=== PATIENT | female | born 1955 ===

== ENCOUNTER 2023-01-22 18:39 | Emergency (ER) | payer MEDICARE, SELFPAY ==
--- NOTE | 2023-01-22 18:47 | XRR_ITS ---
PROCEDURE INFORMATION: Exam: XR Chest Exam date and time: 01/22/2023 7:01 PM Age: 67 years old Clinical indication: Other: N/v; Additional info: SOB TECHNIQUE: Imaging protocol: Radiologic exam of the chest. Views: 1 view. COMPARISON: No relevant prior studies available. FINDINGS: Lungs: Unremarkable. No consolidation. Pleural spaces: Unremarkable. No pleural effusion. No pneumothorax. Heart/Mediastinum: Unremarkable. No cardiomegaly. Bones/joints: Unremarkable. XR/XR chest 1V portable [id number] IMPRESSION: No focal consolidation.
[2023-01-22 18:50] VITALS: BP 161/92; PULSE 63; RESP 18; TEMP 36.5; O2SAT 100
--- NOTE | 2023-01-22 18:51 | ECG_ITS ---
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 Measurements Intervals [place] Rate: 60 P: -14 GA: 128 QRS: 65 QRSD: 90 T: 170 QT: 424 QTc: 427 Interpretive Statements SINUS RHYTHM MODERATE T-WAVE ABNORMALITY, CONSIDER LATERAL ISCHEMIA [-0.1+ mV T-WAVE IN I/aVL/V5/V6] MODERATE T-WAVE ABNORMALITY, CONSIDER INFERIOR ISCHEMIA [-0.1+ mV T-WAVE IN II/aVF] No previous ECG available for comparison Electronically Signed On 01-23-2023 8:16:14 NAVAL SCIENCE TEACHER by Kentrell Cheng M.D. [id number] f
--- NOTE | 2023-01-22 18:57 | ED_ITS ---
HPI - Chest Pain 2 General: Chief Complaint: Chest Pain Stated Complaint: n/v,CP,SOB Time Seen by Provider: 01/22/23 18:48 History of Present Illness: 67-year-old female presents emergency de partment initially complaining that she has lower chest pain. She also states she has lower abdominal pain bilaterally. She reports that she has been using ice chips as a dietary supplement for the previous 1 month and has also had a lap band approximately 5 years ago that she did not complete her follow-up exams 4. She states that her lower abdominal pain is a dull aching 2 out of 10 pain. She states that she did have a single episode of nausea earlier today and has had over the previous 1 week episodes of nausea and vomiting. She now states that her chest pain has resolved and she feels much better. She states her main concern is her lower abdominal pain at present. Associated symptoms: Reports abdominal pain and nausea Review of Systems 2 General: Reports: 10 or more systems reviewed and unremarkable except in HPI and below Card: Reports: chest pain GI: Reports: abdominal pain and nausea Physical Exam 2 Narrative: EXAM NARRATIVE: Constitutional: the patient appears well nourished and with normal development. Vital signs reviewed as documented. HENMT: Normocephalic, atraumatic. Extermal ears with normal appearance without drainage. Nose without drainage, normal appearance. Mucus membranes moist. Neck is supple, No jugular venous distension, trachea is midline, no appreciable carotid bruits. No lymphadenopathy. No meningeal signs. Flexion, extension and lateral rotation is without pain. Eyes: Pupils are equal, round, reactive to light and accommodation. No scleral icterus. Extra-ocular movement are intact. Thorax is symmetrical and with equal rise and fall with respirations. Resp: Lungs are clear to auscultation. No wheezes, rales, crackles or ronchi at present. Cardio: Regular rate and rhythm. Positive S1, S2. No appreciable murmurs, rubs or gallops. GI: Abdominal exam reveals normal bowel sounds to all quadrants. No organomegaly. No obvious palpable masses noted. No hepatomegally appreciated. Soft, nontender to palpation. Extremity: Extremities are non-edematous and both femoral and pedal pulses are 2+ and equal bilaterally. Moves all extremities well, sensation in all extremities. Neuro: Alert and oriented x4, person, place, time and situation. Cranial nerves II through XII are grossly intact, there is no focal neurological deficits that I can appreciate at present. Motor strength in the upper and lower extremities are equal and bilateral 5/5. Psych: Cooperative, calm, normal thought process, appropriate judgment. Skin: No lesions, rashes. No gross abnormalities noted. Back: Symmetrical, no obvious deformity, No CVA tenderness Course 2 Vital Signs: Vital signs: Vital Signs Temperature 97.7 F 01/22/23 18:50 Pulse Rate 50 L 01/22/23 22:37 Respiratory Rate 18 01/22/23 22:37 Blood Pressure 128/65 01/22/23 22:37 Pulse Oximetry 97 01/22/23 22:37 Oxygen Delivery Me thod Room Air 01/22/23 21:13 MDM - Chest Pain Medical Decision Making Physical exam completed and documented, I will obtain serial cardiac enzymes, serial twelve-lead EKGs, chest x-ray, CBC, CMP, urinalysis, B-type natriuretic peptide, PT/PTT/INR, and a chest x-ray. I provide cardiac dose aspirin if indicated and nitroglycerin administration if indicated. Pending the review of the twelve-lead EKG I will also consider providing loading dose of heparin and possible heparin drip as well as evaluate the need for nitroglycerin drip, and reevaluate accordingly. Medical Records I reviewed the patient's medical records. Lab Data I reviewed the patient's lab results. 01/22/23 19:11 01/22/23 19:11 Radiology Impressions Chest X-Ray 01/22/23 18:47 IMPRESSION: No focal consolidation. Abdomen/Pelvis CT 01/22/23 20:08 IMPRESSION: 1. The renal cortices have a heterogeneous attenuation which is nonspecific but can be seen the setting of pyelonephritis. Correlate with UA. 2. Mild compression fracture of the L2 vertebral body, age indeterminate. 3. No bowel obstruction or inflammatory process associated with the bowel. 4. No free air or significant free fluid in the abdomen or pelvis. 5. The appendix images normally. Laboratory Results WBC 6.04 10^3/uL (3.29-11.43) 01/22/23 19:11 RBC 4.93 10^6/uL (3.85-5.65) 01/22/23 19:11 Hgb 13.60 g/dL (11.27-16.99) 01/22/23 19:11 Hct 43.2 % (36-47) 01/22/23 19:11 MCV 87.6 fl (85-98) 01/22/23 19:11 MCH 27.6 pg (27-33) 01/22/23 19:11 MCHC 31.5 g/dL (30-55) 01/22/23 19:11 RDW 15.7 % (12.1-15.1) H 01/22/23 19:11 Plt Count 324 10^3/cmm (157-399) 01/22/23 19:11 MPV 10.5 fL (7.4-10.4) H 01/22/23 19:11 Neut % (Auto) 55.7 % 01/22/23 19:11 Lymph % (Auto) 29.3 % 01/22/23 19:11 [place] % (Auto) 10.6 % 01/22/23 19:11 Eos % (Auto) 3.0 % 01/22/23 19:11 Baso % (Auto) 1.2 % 01/22/23 19:11 Neut # (Auto) 3.37 10^3/uL (1.8-7.7) 01/22/23 19:11 Lymph # (Auto) 1.8 10^3/uL (0.8-4.8) 01/22/23 19:11 [place] # (Auto) 0.6 10^3/uL (0.2-0.9) 01/22/23 19:11 Eos # (Auto) 0.2 10^3/uL (0.0-0.8) 01/22/23 19:11 Baso # (Auto) 0.1 10^3/uL (0.0-0.1) 01/22/23 19:11 Nucleated RBC % (auto) 0 % 01/22/23 19:11 Nucleated RBCs # 0.0 /100WBC 01/22/23 19:11 Sodium 140 mmol/L (136-145) 01/22/23 19:11 Potassium 4.2 mmol/L (3.5-5.1) 01/22/23 19:11 Chloride 100 mmol/L (98-107) 01/22/23 19:11 Carbon Dioxide 25 mmol/L (22-29) 01/22/23 19:11 Anion Gap 19.2 (5-19) H 01/22/23 19:11 BUN 26 mg/dL (8-23) H 01/22/23 19:11 Creatinine 1.0 mg/dL (0.5-0.9) H 01/22/23 19:11 GFR Calculation 55.0 mL/min (90-130) L 01/22/23 19:11 Glucose 76 mg/dL (65-115) 01/22/23 19:11 Calculated Osmolality 294 mOsm/kg (285-295) 01/22/23 19:11 Calcium 10.2 mg/dL (8.5-10.5) 01/22/23 19:11 Total Bilirubin 1.1 mg/dL (0.15-1.2) 01/22/23 19:11 AST 23 U/L (0-32) 01/22/23 19:11 ALT 14 U/L (0-33) 01/22/23 19:11 Alkaline Phosphatase 141 U/L (35-105) H 01/22/23 19:11 Troponin T Baseline 21 ng/L (0-10) H 01/22/23 19:11 Troponin T 120 Minute 18.42 ng/L (0-10) H 01/22/23 21:22 Delta Troponin T -2.58 ABS# (0-10) L 01/22/23 21:22 NT-Pro-B Natriuret Pep 313 pg/mL (0-125) H 01/22/23 19:11 Total Protein 8.0 g/dL (6.6-8.7) 01/22/23 19:11 Albumin 4.7 g/dL (3.5-5.2) 01/22/23 19:11 Globulin 3.3 g/dL (1.3-4.6) 01/22/23 19:11 Lipase 40 U/L (13-60) 01/22/23 19:11 Urine Color Dark yellow (Yellow) 01/22/23 19:25 Urine Appearance Hazy (CLEAR) A 01/22/23 19:25 Urine pH 5 (5-7) 01/22/23 19:25 Ur Specific [place] 1.030 (1.005-1.030) 01/22/23 19:25 Urine Protein Neg (Negative) 01/22/23 19:25 Urine Glucose (UA) Norm (Normal) 01/22/23 19:25 Urine Ketones 2+ (Negative) H 01/22/23 19:25 Urine Blood 2+ (Negative) H 01/22/23 19:25 Urine Nitrate Negative (Negative) 01/22/23 19:25 Urine Bilirubin Neg (Negative) 01/22/23 19:25 Urine Urobilinogen Norm mg/dL (Negative) 01/22/23 19:25 Ur Leukocyte Esterase 2+ (Negative) H 01/22/23 19:25 Urine RBC 0-4 /hpf (0-2) H 01/22/23 19:25 Urine WBC 10-15 /hpf (0-5) H 01/22/23 19:25 Ur Squamous Epith Cells 0-4 /hpf (0-5) H 01/22/23 19:25 Ur Renal Epithelial Cell 0-4 /hpf 01/22/23 19:25 Amorphous Sediment Not Reportable 01/22/23 19:25 Urine Bacteria 3+ /hpf (NONE) H 01/22/23 19:25 Hyaline Casts 0-4 /lpf H 01/22/23 19:25 Fine Granular Casts 0-4 /lpf H 01/22/23 19:25 Urine Mucus Trace /hpf 01/22/23 19:25 Ur Oval Fat Bodies Trace /hpf 01/22/23 19:25 All radiology interpretation(s) finalized by discharge Discharge Plan Discharge Patient Disposition: Home Clinical Impression: Atypical chest pain Abdominal pain Qualifiers: Abdominal location: lower abdomen, unspecified Qualified Code(s): R10.30 - Lower abdominal pain, unspecified Urinary tract infection Qualifiers: Urinary tract infection type: acute cystitis Hematuria presence: with hematuria Qualified Code(s): N30.01 - Acute cystitis with hematuria Condition: Stable Prescriptions: New ondansetron HCl 4 mg tablet 4 mg PO Q12H 5 Days Qty: 10 0RF Macrobid 100 mg capsule 100 mg PO Q12H 7 Days Qty: 14 0RF Rx Instructions: must administer with a meal/food No Action oxycodone-acetaminophen 7.5-325 mg tablet PO levothyroxine [Euthyrox] 100 mcg tablet 100 mcg PO atorvastatin 20 mg tablet 20 mg PO acyclovir 800 mg tablet 800 mg PO prednisone 20 mg tablet 20 mg PO DAILY 7 Days Qty: 7 0RF triamcinolone acetonide 0.1 % cream 1 applic topical DAILY Qty: 15 0RF Discharge Orders: Discharge ED (Routine); Ordered 01/22/23 Ordered By: Rob Rodriguez Referrals: Vero Walden DO [Primary Care Provider] - Discharge Diet: Advance as tolerated Discharge Activity: Resume usual activity Patient Instructions: Abdominal Pain (ED), Opioid Safety, Pain Management Activity Restrictions/Additional Instructions: Activity Restrictions/Additional Instructions: Thank you for choosing [facility] for your healthcare needs today. Please realize that you were seen in the Emergency Department and that we are providing you with an emergency medical screening exam and this may not be a complete and all inclusive of all the testing and or medical work-up that you may need to determine your ailment or severity of your illness. It is very important that you follow-up as instructed with your Primary care provider or Specialist for additional evaluation and to discuss your medical treatment plan. You may return to the Emergency Department should you have concerns or if your condition changes or worsens in any way. Coding Level of Care Code ED Cloth Laminating Supervisor for Leanne Rodrigez
[2023-01-22 19:31] LABS: Basophils # 0.1 10^3/uL (0.0-0.1); Basophils % 1.2 %; Eosinophils # 0.2 10^3/uL (0.0-0.8); Hematocrit 43.2 % (36-47); Lymphocytes # 1.8 10^3/uL (0.8-4.8); Lymphocytes % 29.3 %; Mean Corpuscular HGB Conc 31.5 g/dL (30-55); Mean Corpuscular Hemoglobin 27.6 pg (27-33); Mean Corpuscular Volume 87.6 fl (85-98); Mean Platelet Volume 10.5 fL (7.4-10.4); Monocytes # 0.6 10^3/uL (0.2-0.9); Monocytes % 10.6 %; Neutrophils # 3.37 10^3/uL (1.8-7.7); Neutrophils % 55.7 %; Nucleated Red Blood Cells % 0 %; Platelet Count 324 10^3/cmm (157-399); Red Blood Count 4.93 10^6/uL (3.85-5.65); Red Cell Distribution Width 15.7 % (12.1-15.1); White Blood Count 6.04 10^3/uL (3.29-11.43)
[2023-01-22 19:42] LABS: Add Urine Microscopic? YES; Bilirubin Urine Neg (Negative); Blood Urine 2+ (Negative); Glucose Urine UA Norm (Normal); Ketones Urine 2+ (Negative); Leukocyte Esterase Urine 2+ (Negative); Nitrate Urine Negative (Negative); Protein Urine Neg (Negative); Urine Appearance Hazy (CLEAR); Urine Color Dark Yellow (Yellow); Urobilinogen Urine Norm (Negative); pH Urine 5 (5-7)
[2023-01-22] MEDS: ondansetron 2 mg/ML SDV 2 mL 4 MG IVP ×2 (19:46→22:21)
[2023-01-22 19:50] VITALS: BP 166/85; PULSE 55; RESP 16; O2SAT 97
[2023-01-22 19:50] LABS: Troponin(5th) Baseline 21 ng/L (0-10)
[2023-01-22 19:51] LABS: Bacteria Urine 3+ /hpf; Mucus Urine TRACE /hpf; RBC Urine 0-4 /hpf (0-2); Renal Epithelial Cells Urine 0-4 /hpf; Squamous Epithelial Cell Urine 0-4 /hpf (0-5)
[2023-01-22 19:52] LABS: Add Urine Culture? Yes; Fine Granular Casts Urine 0-4 /lpf; Hyaline Casts Urine 0-4 /lpf; Oval Fat Bodies Urine TRACE /hpf
--- NOTE | 2023-01-22 20:08 | CTR_ITS ---
PROCEDURE INFORMATION: Exam: CT Abdomen And Pelvis With Contrast Exam date and time: 01/22/2023 8:19 PM Age: 67 years old Clinical indication: Abdominal pain; Localized; Right upper quadrant (ruq); Prior surgery; Surgery date: 6+ months; Surgery type: Lapband 10 years ago; Additional info: Lower abdominal pain TECHNIQUE: Imaging protocol: Computed tomography of the abdomen and pelvis with contrast. Radiation optimization: All CT scans at this facility use at least one of these dose optimization techniques: automated exposure control; mA and/or kV adjustment per patient size (includes targeted exams where dose is matched to clinical indication); or iterative reconstruction. Contrast material: OMNI 350; Contrast volume: 80 ml; Contrast route: INTRAVENOUS (IV); REPORTING DATA: Count of CT and Cardiac NM exams in prior 12 months: This patient has received 0 known CTs and 0 known cardiac nuclear medicine studies in the 12 months prior to the current study. COMPARISON: CR (CHEST, ) 01/22/2023 7:01 PM RADIATION DOSE METRICS: Total DLP (mGy-cm): 359.03 FINDINGS: Tubes, catheters and devices: Lap band in place. Liver: Normal. No mass. Gallbladder and bile ducts: Normal. No calcified stones. No ductal dilation. Pancreas: Normal. No ductal dilation. Spleen: Multiple punctate calcifications in the spleen consistent with prior granulomatous infection. Adrenal glands: Normal. No mass. Kidneys and ureters: The renal cortices have a heterogeneous attenuation which is nonspecific but can be seen the setting of pyelonephritis. Correlate with UA. Stomach and bowel: Unremarkable. No obstruction. No mucosal thickening. Appendix: No evidence of appendicitis. Intraperitoneal space: Unremarkable. No free air. No significant fluid collection. Vasculature: Unremarkable. No abdominal aortic aneurysm. Lymph nodes: Unremarkable. No enlarged lymph nodes. Urinary bladder: Unremarkable as visualized. Reproductive: Unremarkable as visualized. Bones/joints: Mild compression fracture of the L2 vertebral body, age indeterminate. Soft tissues: Unremarkable. CT/CT abdomen pelvis w con* [id number] IMPRESSION: 1. The renal cortices have a heterogeneous attenuation which is nonspecific but can be seen the setting of pyelonephritis. Correlate with UA. 2. Mild compression fracture of the L2 vertebral body, age indeterminate. 3. No bowel obstruction or inflammatory process associated with the bowel. 4. No free air or significant free fluid in the abdomen or pelvis. 5. The appendix images normally.
[2023-01-22 20:11] LABS: Alanine Aminotransferase 14 U/L (0-33); Albumin Level 4.7 g/dL (3.5-5.2); Alkaline Phosphatase 141 U/L (35-105); Anion Gap 19.2 (5-19); Aspartate Amino Transferase 23 U/L (0-32); Blood Urea Nitrogen 26 mg/dL (8-23); Calcium 10.2 mg/dL (8.5-10.5); Carbon Dioxide 25 mmol/L (22-29); Chloride 100 mmol/L (98-107); Globulin 3.3 g/dL (1.3-4.6); Glucose 76 mg/dL (65-115); Lipase 40 U/L (13-60); NT Pro B Type Natriuretic Pept 313 pg/mL (0-125); Osmolality Calculated 294 mOsm/kg (285-295); Potassium 4.2 mmol/L (3.5-5.1); Sodium 140 mmol/L (136-145); Total Bilirubin 1.1 mg/dL (0.15-1.2)
[2023-01-22] MEDS: iohexol 350 mg/mL 500 mL Btl (per mL) IV (20:25)
--- NOTE | 2023-01-22 20:47 | ECG_ITS ---
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 Measurements Intervals [place] Rate: 49 P: -39 ME: 127 QRS: 75 QRSD: 93 T: 36 QT: 507 QTc: 460 Interpretive Statements SINUS BRADYCARDIA NONSPECIFIC ST ELEVATION [0.05+ mV ST ELEVATION] PROLONGED QT INTERVAL No previous ECG available for comparison Electronically Signed On 01-23-2023 8:17:56 CREELER by Kentrell Cheng M.D. [id number]
[2023-01-22 20:58] VITALS: BP 149/73; PULSE 50; RESP 18; O2SAT 97
[2023-01-22 21:13] VITALS: BP 141/75; PULSE 89; RESP 18; O2SAT 95
[2023-01-22] MEDS: cefTRIAXone 1,000 MG in sodium chloride 0.9% (plus) 50 ML 100 MG IV (21:27)
[2023-01-22] MEDS: sodium chloride 0.9% 1,000 ML 999 ML IV (21:28)
[2023-01-22 21:41] VITALS: BP 161/86; PULSE 94; RESP 23; O2SAT 100
[2023-01-22 21:43] LABS: Troponin 5 2HR 18.42 ng/L (0-10); Troponin 5 2HR Delta -2.58 ABS# (0-10)
[2023-01-22 22:37] VITALS: BP 128/65; PULSE 50; RESP 18; O2SAT 97
== END 2023-01-22 22:38 | disposition home or self-care (01) ==
PROVIDERS: Emergency Medicine; Emergency Provider Internal Medicine; PCP Family Medicine
DX: R07.89 Other chest pain (principal); R10.30 Lower abdominal pain, unspecified; N30.01 Acute cystitis with hematuria; S32.020A Wedge compression fracture of second lumbar vertebra, initial encounter for closed fracture; X58.XXXA Exposure to other specified factors, initial encounter
CPT/HCPCS: 71045; 74177; 80053; 81001; 83690; 83880; 84484; 85025; 87077; 87086; 87186; 93005; 96365; 96375; 96376; 99285; J0696; J2405; J7030; Q9967

== ENCOUNTER → 2023-12-10 08:00 | Outpatient (BNVA) | payer MEDICARE, SELFPAY | PROVIDERS: PCP Family Medicine; Referring Provider Nurse Practitioner Family; Visit Provider Surgery | DX: R03.0 Elevated blood-pressure reading, without diagnosis of hypertension (principal); R19.5 Other fecal abnormalities; K21.9 Gastro-esophageal reflux disease without esophagitis | CPT/HCPCS: 99204 ==

== ENCOUNTER 2024-01-02 08:56 | Day surgery (SDC) | payer MEDICARE, SELFPAY ==
[2024-01-02 09:15] VITALS: BP 138/76; PULSE 59; RESP 17; TEMP 36.6; O2SAT 98; BMI 24.0
[2024-01-02] MEDS: sodium chloride 0.9% 1,000 ML 30 ML IV (09:23)
--- NOTE | 2024-01-02 09:34 | ANES.PREANE2 ---
Pre-Anesthetic Assessment Height/Weight: Height 1.73 m Weight 71.668 kg Temp Pulse Resp BP Pulse Ox O2 Del Method 97.8 F 59 L 17 138/76 98 Room Air 01/02/24 09:15 01/02/24 09:15 01/02/24 09:15 01/02/24 09:15 01/02/24 09:15 01/02/24 09:15 Preop Diagnosis: GERD, + colorectal exam Operation Date: 01/02/24 10:00 Proposed Procedures p EGD 56541, 47659, G0105, K21.9, R19.5,(Not Applicable) - Jamin Graves DO s Colonoscopy(Not Applicable) - Jamin Graves DO Familial anesthetic complications: none Was Beta Oliver taken within 24 hours: N/A Was Clonidine taken within 24 hours: N/A Last intake: Intake Last Liquid Date 01/01/24 Last Liquid Time 18:00 Last Solid Date 12/31/23 Last Solid Time 19:00 Social Alcohol (glass of wine monthly) and No tobacco Exam alert, oriented x 3, clear to auscultation bilaterally and regular rate & rhythm Airway Submandibular: within normal limits Cervical ROM: within normal limits Mallampati: Class II Dentition: false (upper plate) Pulmonary None reported CV/HEM Coronary Artery Disease (bilateral CEA 1993) None reported Hepatic None reported GI Gastroesophageal Reflux Disease no symptoms today. Metabolic Hyperlipidemia and Thyroid Disease [facility] [place] None reported Neuropsych Cerebrovascular Accident Anesthetic Plan ASA status: 2 Anesthesia: MAC Medications/Allergies Home Medications Medication Instructions Recorded Confirmed Last Taken Type levothyroxine 100 mcg tablet 100 mcg PO DAILY 08/30/21 01/02/24 01/02/24 History (Euthyrox) oxycodone-acetaminophen 7.5 mg-325 1 tab PO PRN 08/30/21 01/02/24 Unknown History mg tablet pantoprazole 40 mg tablet,delayed 40 mg PO BID 6 weeks #84 tabs 12/10/23 01/02/24 12/31/23 Rx release (Protonix) ascorbic acid (vitamin C) 500 mg 500 mg PO DAILY 12/31/23 01/02/24 12/31/23 History tablet (Vitamin C) budesonide-formoterol HFA 80 2 puff inhalation BID 12/31/23 01/02/24 12/31/23 History mcg-4.5 mcg/actuation aerosol inhaler (Symbicort) cholecalciferol (vitamin D3) 50 50 mcg PO DAILY 12/31/23 01/02/24 12/31/23 History mcg (2,000 unit) tablet (Vitamin D3) coenzyme Q10 100 mg capsule 100 mg PO DAILY 12/31/23 01/02/24 12/31/23 History (CoQ-10) multivitamin 1 tab PO DAILY 12/31/23 01/02/24 12/31/23 History omega-3 fatty acids 500 mg capsule 500 mg PO BID 12/31/23 01/02/24 12/31/23 History topiramate 200 mg tablet (Topamax) 200 mg PO DAILY 12/31/23 01/02/24 12/31/23 History turmeric 400 mg capsule 400 mg PO DAILY 12/31/23 01/02/24 12/31/23 History zinc 15 mg tablet 15 mg PO DAILY 12/31/23 01/02/24 12/31/23 History ondansetron HCl 4 mg tablet 4 mg PO Q8H PRN nausea and 01/01/24 01/02/24 01/01/24 Rx vomiting #3 tabs Allergies Allergy/AdvReac Type Severity Reaction Status Date / Time Sulfa (Sulfonamide Allergy Severe Unknown Verified 12/10/23 08:12 Antibiotics) Current Medications Generic Name Dose Route Start Last Admin Trade Name Freq PRN Reason Stop Dose Admin Sodium Chloride 1,000 mls @ 30 mls/hr 01/02/24 09:15 01/02/24 09:23 Sodium Chloride 0.9% IV 01/03/24 09:14 30 mls/hr .Q24H BRANDON Administration PFSH Anesthesia Medical History (Updated 12/10/23 @ 08:45 by Jamin Graves DO) Hx of cataract bilat Hx of fracture of wrist left Surgical History (Updated 12/10/23 @ 08:45 by Jamin Graves DO) Hx of laparoscopic gastric banding Hx of tubal ligation Hx of lumbosacral spine surgery Hx of tonsillectomy Hx of colonoscopy Family History Sister Cancer stomach cancer Social History Smoking and tobacco/nicotine status: never used tobacco/nicotine Data Anesthesia Cardiac Studies: No Data to Display
--- NOTE | 2024-01-02 09:42 | W.PM.OPSUD ---
Surgery/Procedure H&P Update DATE OF PROCEDURE: January 02, 2024 DATE H&P PERFORMED: 12/10/23 H&P UPDATE INFORMATION: I have reviewed H&P completed within last 30 days, I have examined patient prior to procedure and No changes to prior documentation PREOP DIAGNOSIS: GERD, + colorectal exam PLANNED PROCEDURE: Operation Date: 01/02/24 10:00 Proposed Procedures p EGD 19615, 62294, G0105, K21.9, R19.5,(Not Applicable) - DO lior Mathews Colonoscopy(Not Applicable) - Jamin Graves DO
[2024-01-02 10:12] VITALS: BP 140/75; PULSE 60; RESP 14; TEMP 36.2; O2SAT 99
[2024-01-02 10:20] VITALS: BP 153/85; PULSE 62; RESP 14; O2SAT 97
[2024-01-02 10:30] VITALS: BP 157/86; PULSE 58; RESP 16; O2SAT 96
[2024-01-02 10:40] VITALS: BP 159/89; PULSE 65; RESP 18; O2SAT 99
--- NOTE | 2024-01-02 11:00 | ANE.PACU2 ---
Inpatient post-anesthesia follow up: Airway intact: Yes Vital signs: Temperature 97.2 F Pulse Rate 65 Respiratory Rate 18 Blood Pressure 159/89 Pulse Oximetry 99 Oxygen Delivery Me thod Room Air Oxygen Flow Rate 3 Fraction of Inspir ed Oxygen Hydration adequate: Yes Nausea and vomiting: No Pain level: 1 Mental status: Baseline
== END 2024-01-02 11:00 | disposition home or self-care (01) ==
PROVIDERS: PCP Family Medicine; Visit Provider Surgery
PROC: 0DJ08ZZ Inspection of Upper Intestinal Tract, Via Natural or Artificial Opening Endoscopic (ICD-10-PCS; CPT 43235; principal; 2024-01-02 10:00)
PROC: 0DJD8ZZ Inspection of Lower Intestinal Tract, Via Natural or Artificial Opening Endoscopic (ICD-10-PCS; CPT 45378; 2024-01-02 10:00)
DX: Z12.11 Encounter for screening for malignant neoplasm of colon (principal); R03.0 Elevated blood-pressure reading, without diagnosis of hypertension; I85.00 Esophageal varices without bleeding; K29.50 Unspecified chronic gastritis without bleeding; K21.9 Gastro-esophageal reflux disease without esophagitis; Z80.0 Family history of malignant neoplasm of digestive organs; R12 Heartburn; I25.10 Atherosclerotic heart disease of native coronary artery without angina pectoris; E78.5 Hyperlipidemia, unspecified; Z86.73 Personal history of transient ischemic attack (TIA), and cerebral infarction without residual deficits
CPT/HCPCS: 43239; 88305; 88342; G0121; J2704; J7030

== ENCOUNTER → 2024-01-21 13:01 | Outpatient (BNVA) | payer MEDICARE, SELFPAY | PROVIDERS: PCP Family Medicine; Visit Provider Surgery | DX: Z09 Encounter for follow-up examination after completed treatment for conditions other than malignant neoplasm (principal); K21.9 Gastro-esophageal reflux disease without esophagitis; R19.5 Other fecal abnormalities | CPT/HCPCS: 99214 ==